=== PATIENT | female | born 1975 | race Two or more races ===

== ENCOUNTER 2020-04-17 06:58 | Emergency (ER) | payer BC ==
[~2020-04-17] VITALS: Ht 157.5 cm; Wt 105.0 kg
--- NOTE | 2020-04-17 07:25 | PHYS DOC ---
Past Medical History Past Medical History: Diabetes-Type II Past Surgical History: No Surgical History Smoking Status: Never Smoker Alcohol Use: Occasionally General Adult EDM: Chief Complaint: ALLERGIC REACTION HPI: HPI: Patient is a 44 year old female who presented to ER for evaluation of itching rash over her body started yesterday. This morning she woke up with a lower lip swelling. She denies any trouble swallowing, no chest pain, no nausea vomiting, no trouble breathing. Patient states the symptoms started after she came home from eating outside. Patient states she ate some shrimp but she did eat shrimp before and did not have any problem in the past. Patient was recently started on Metformin and omeprazole 2 weeks ago. Review of Systems: Review of Systems: Constitutional: Denies fever or chills. [] Eyes: Denies change in visual acuity. [] HENT: Denies nasal congestion or sore throat. [] Respiratory: Denies cough or shortness of breath. [] Cardiovascular: Denies chest pain or edema. [] GI: Denies abdominal pain, nausea, vomiting, bloody stools or diarrhea. [] : Denies dysuria. [] Musculoskeletal: Denies back pain or joint pain. [] Integument: Positive for rash and itching. Neurologic: Denies headache, focal weakness or sensory changes. [] Endocrine: Denies polyuria or polydipsia. [] Lymphatic: Denies swollen glands. [] Psychiatric: Denies depression or anxiety. [] Heart Score: Risk Factors: Risk Factors: DM, Current or recent (<one month) smoker, HTN, HLP, family hi story of CAD, obesity. Risk Scores: Score 0 - 3: 2.5% MACE over next 6 weeks - Discharge Home Score 4 - 6: 20.3% MACE over next 6 weeks - Admit for Clinical Observation Score 7 - 10: 72.7% MACE over next 6 weeks - Early Invasive Strategies Current Medications: Current Medications Medications (Trade) Dose Ordered Sig/Casa Start Time Stop Time Status Last Admin Dose Admin Diphenhydramine HCl (Benadryl) 50 mg 1X ONCE 04/17/20 07:30 04/17/20 07:31 Famotidine (Pepcid Vial) 20 mg 1X ONCE 04/17/20 07:30 04/17/20 07:31 Methylprednisolone Sodium Succinate (SOLU-Medrol 125MG VIAL) 125 mg 1X ONCE 04/17/20 07:30 04/17/20 07:31 Allergies: Allergies: Allergies Coded Allergies Type Severity Reaction Last Updated Verified No Known Drug Allergies 04/17/20 No Physical Exam: PE: Constitutional: Well developed, well nourished, no acute distress, non-toxic appearance. [] HENT: Normocephalic, atraumatic, bilateral external ears normal, oropharynx moist, no oral exudates, nose normal. Lower lip swelling, no tongue swelling. Eyes: PERRLA, EOMI, conjunctiva normal, no discharge. [] Neck: Normal range of motion, no tenderness, supple, no stridor. [] Cardiovascular:Heart rate regular rhythm, no murmur [] Lungs & Thorax: Bilateral breath sounds clear to auscultation [] Abdomen: Bowel sounds normal, soft, no tenderness, no masses, no pulsatile masses. [] Skin: Warm, dry, no erythema diffuse Maculopapular rash for trunk, extremities. Back: No tenderness, no CVA tenderness. [] Extremities: No tenderness, no cyanosis, no clubbing, ROM intact, no edema. [] Neurologic: Alert and oriented X 3, normal motor function, normal sensory function, no focal deficits noted. [] Psychologic: Affect normal, judgement normal, mood normal. [] Current Patient Data: Vital Signs: Vital Signs Date Time Temp Pulse Resp B/P (MAP) Pulse Ox O2 Delivery O2 Flow Rate FiO2 04/17/20 07:09 97.2 93 18 193/83 (119) 97 Room Air 97.2 EKG: EKG: [] Radiology/Procedures: Radiology/Procedures: [] Course & Med Decision Making: Course & Med Decision Making Pertinent Labs and Imaging studies reviewed. (See chart for details) Patient is a 44-year-old female who presented to ER with rash and swelling lower lip after eating 2 days ago. Patient is most likely allergic to shrimp. Patient was instructed not to eat swim anymore, she will need to follow-up with an allergy doctor for outpatient testing. Patient was given medication in the ER, feeling much better. Patient will be discharged home soon. Dragon Disclaimer: Dragon Disclaimer: This electronic medical record was generated, in whole or in part, using a voice recognition dictation system. Departure Departure Impression: Primary Impression: Urticaria Additional Impression: Allergic angioedema Disposition: 01 DC HOME SELF CARE/HOMELESS Condition: IMPROVED Patient Instructions: Angioedema, Hives Additional Instructions: DO NOT EAT SHRIMPS ANYMORE. PLEASE FOLLOW UP WITH AN ALLERGY DOCTOR THIS WEEK FOR ALLERGY TESTING. Scripts Famotidine (PEPCID) 20 Mg Tablet 20 MG PO HS for 5 Days, #5 TAB Prov: SHANIQUA CURRIE DO 04/17/20 Prednisone (PREDNISONE) 20 Mg Tablet 1 TAB PO DAILY for 5 Days, #5 TAB Prov: SHANIQUA CURRIE DO 04/17/20 SHANIQUA CURRIE DO Apr 17, 2020 07:25
[2020-04-17] MEDS ORDERED: FAMOTIDINE 20 MG/2 ML VIAL IVP ONE (07:30)
[2020-04-17] MEDS ORDERED: methylPREDNISolone SOD SUCC PF 125 MG/2 ML VIAL. IV ONE (07:30)
[2020-04-17] MEDS ORDERED: diphenhydrAMINE 50 MG/ML VIAL IVP ONE (07:30)
[2020-04-17] MEDS ORDERED: EPINEPHrine 1 MG/ML VIAL ONE (08:37)
[2020-04-17] MEDS ORDERED: EPINEPHrine 1 MG/ML VIAL IM ONE (08:45)
[2020-04-17 09:10] VITALS: BP 130/63
[2020-04-17] MEDS ORDERED: PRED20TA PO (09:25)
[2020-04-17] MEDS ORDERED: FAMO-63 PO (09:25)
== END 2020-04-17 09:33 | disposition home or self-care (01) ==
LOC: ER 06:58
DX: T78.3XXA Angioneurotic edema, initial encounter (principal); R21 Rash and other nonspecific skin eruption; E11.9 Type 2 diabetes mellitus without complications; X58.XXXA Exposure to other specified factors, initial encounter; Y93.89 Activity, other specified; Y92.89 Other specified places as the place of occurrence of the external cause; Y99.8 Other external cause status
CPT/HCPCS: 96372; 96374; 96375; 99284; J0171; J1200; J2930; J3490

== ENCOUNTER → 2020-04-20 | Outpatient (CLI) | payer BC ==
[2020-04-17 09:10] VITALS: BP 130/63
[~2020-04-20] MED LIST: FAMO-63 PO; METF10007 PO; OMEP40CA7 PO; OXYC1TAB15 PO; PRED20TA PO; SINCALIDE 2.1 MCG in IV NORMAL SALINE 50ML 30 ML IV ONE
--- NOTE | 2020-04-20 10:58 | RAD ---
EXAM: HEPATOBILIARY SCINTIGRAPHY WITH GALLBLADDER EJECTION FRACTION CALCULATION. HISTORY: Right upper quadrant abdominal pain for one month TECHNIQUE: 5 mCi technetium-99m Choletec were administered intravenously and scintigraphic images of the abdomen obtained. After filling of the gallbladder, 2.1 mcg of sincalide were infused and the gal lbladder ejection fraction calculated. FINDINGS: Due to a software glitch, the initial hour of images did not save. Gallbladder filling by r eport commenced at approximately the 30 minute jaskaran. There is ultimately normal filling of the gallb ladder and clearance into the biliary tree and small bowel. The gallbladder ejection fraction is 49% (normal >35%). IMPRESSION: 1. Normal gallbladder ejection fraction. Electronically signed by: Gregorio Guillen MD (04/20/2020 10:56 AM) [id number]
== END ==
LOC: NM 08:00
PROVIDERS: ATTEND Physician Assistant
DX: K21.9 Gastro-esophageal reflux disease without esophagitis (principal); R19.8 Other specified symptoms and signs involving the digestive system and abdomen; R11.0 Nausea; R10.11 Right upper quadrant pain
CPT/HCPCS: 78227; A9537; J2805

== ENCOUNTER → 2020-08-14 | Outpatient (CLI) | payer BC ==
[~2020-08-14] MED LIST changes: -SINCALIDE 2.1 MCG in IV NORMAL SALINE 50ML 30 ML IV ONE
== END ==
LOC: LAB 09:39
PROVIDERS: ATTEND Surgery
DX: Z01.812 Encounter for preprocedural laboratory examination (principal); Z20.822 Contact with and (suspected) exposure to COVID-19; K82.8 Other specified diseases of gallbladder
CPT/HCPCS: U0003; U0005

== ENCOUNTER 2020-08-15 06:06 | Day surgery (SDC) | payer BC ==
[~2020-08-15] VITALS: Ht 157.5 cm; Wt 106.0 kg
[~2020-08-15 06:06] MED LIST changes: +HYDROmorphone 2 MG/ML VIAL IVP PRN; +IV RINGERS,LACTATED 1000ML 1,000 ML IV SCH; +MORPHINE SULFATE 2 MG/ML VIAL. IVP PRN; -OXYC1TAB15 PO; +PROCHLORPERAZINE 10 MG/2 ML VIAL. IVP PRN; +fentaNYL PF VIAL 100 MCG/2 ML VIAL IVP PRN
[2020-08-15] MEDS ORDERED: ROCURONIUM 50 MG/5 ML VIAL. ONE (06:34)
[2020-08-15] MEDS ORDERED: LIDOCAINE 2% PF 5 ML VIAL. ONE (06:34)
[2020-08-15] MEDS ORDERED: ONDANSETRON PF 4 MG/2 ML VIAL. ONE (06:34)
[2020-08-15] MEDS ORDERED: fentaNYL PF VIAL 100 MCG/2 ML VIAL ONE ×3 (06:34→09:05)
[2020-08-15] MEDS ORDERED: PROPOFOL 10 MG/ML (20ML) VIAL. IV ONE (06:34)
[2020-08-15] MEDS ORDERED: DEXAMETHASONE SOD PHOS 4 MG/ML VIAL ONE (06:34)
[2020-08-15 06:43] VITALS: BP 133/75
[2020-08-15] MEDS ORDERED: IOHEXOL 300 MG/ML 50 ML VIAL. ONE (06:59)
[2020-08-15] MEDS ORDERED: SURGICEL HEMOSTAT 4X8 EACH. ONE (06:59)
[2020-08-15] MEDS ORDERED: BUPIVACAINE MPF 0.5% 30 ML VIAL. ONE (06:59)
[2020-08-15] MEDS ORDERED: GLYCOPYRROLATE 1 MG/5 ML VIAL. ONE (07:36)
[2020-08-15] MEDS ORDERED: NEOSTIGMINE METHYLSULFATE 5 MG/5 ML SYRINGE. ONE (07:51)
[2020-08-15] MEDS ORDERED: KETOROLAC 30 MG/ML VIAL. ONE ×2 (08:11→08:13)
[2020-08-15] MEDS ORDERED: SEVOFLURANE 61 TO 120 MINUTES. IH ONE (08:11)
--- NOTE | 2020-08-15 08:12 | RAD ---
INDICATION: Reason: CHOLANGIOGRAM IN OR WITH C-ARM,FL TIME =.24 MIN, 3 IMAGES / Spl. Instructions: / History: . Fluoro for procedure. IMPRESSION: Fluoroscopy was utilized by the clinical service to assist with their procedure. There are 3 saved images/series. The limited saved images show spot images of the upper abdomen with contrast injection of the bile du ct with contrast flow into the duodenum without evidence of common bile duct obstruction. A definite persistent filling defect is not seen.. 0.24 minutes of fluoroscopy time was used. This dictation is for the usage of fluoroscopy only. Please see the clinical service's procedure note for detail on the procedure. Electronically signed by: Manny Beckett MD (08/15/2020 8:10 AM) [id number]
--- NOTE | 2020-08-15 08:28 | PDOC4 ---
Operative Note Operative Note Operative Note: Preoperative Diagnosis: Biliary dyskinesia Postoperative Diagnosis: Same Procedure: Laparoscopic cholecystectomy with intraoperative cholangiogram Surgeons: Michael Chainstitch Pants Outseamer: Quita WALSH Anesthesia: Gen. Estimated Blood Loss: 10 mL Specimen: Gallbladder to pathology Drains: None Complications: None Indications: The patient is a 44-year-old female who was referred due to biliary dyskinesia. Surgical treatment was offered by means of a laparoscopic cholecystectomy. The risks of surgery were discussed which include bleeding, infection, bile duct injury, bile leak, pain, the potential for additional surgeries or procedures. The patient understands and would like to proceed. Description: The patient was taken to the operating room and laid supine on the operating table. General anesthesia was performed. The abdomen was prepped with ChloraPrep and draped in a standard surgical fashion. A small infraumbil ical incision was made with a scalpel. The Veress needle was then inserted and a pneumoperitoneum was then created. A 5 mm trocar was then inserted and the laparoscope was introduced. In the upper midabdomen a 5 mm trocar was inserted and in the right upper quadrant two 2.3 mm mini lap graspers were inserted. The gallbladder was retracted cephalad. The cystic duct was dissected free from surrounding tissues. One clip was placed on the duct near the gallbladder junction. An opening was made in the duct and a cholangiocatheter placed within and secured with a clip. Using contrast dye and fluoroscopy an intraoperative cholangiogram was performed that appeared unremarkable. The clip and catheter were then withdrawn. Three clips were placed on the cystic duct and it was divided. The cystic artery was then identified, dissected free, doubly clipped and divided as well. The gallbladder was then mobilized away from the liver with cautery. The umbilical 5 millimeter trocar was exchanged for an [address] trocar. The gallbladder was then placed in an endoscopic bag and extracted at the umbilical trocar site. The fascia there was closed with an 0 Vicryl suture and infiltrated with 0.5% marcaine. All blood and irrigation fluid was suctioned and hemostasis was good. The remaining ports were removed and the pneumoperitoneum was relieved. The skin incisions were closed using 4-0 Monocryl suture. Steri-Strips and dressings were then applied. The patient tolerated the procedure well and was sent to the recovery room in stable condition. At the end of the case all counts were correct. DESTIN GONZALEZ MD Aug 15, 2020 08:28
--- NOTE | 2020-08-15 08:30 | DISCH ---
DISCHARGE INSTRUCTIONS Condition on Discharge Condition on Discharge: Stable Activity After Discharge Activity Instructions for Disc: Other, see below (no lifting over 20 lbs X 2 weeks, no driving while taking pain meds) Diet after Discharge Diet after Discharge: Regular Wound Incision Care Wound/Incision Care: Other, see below (may remove bandaids tomorrow and shower) Follow-Up Follow up with: Dr Gonzalez in office in 2 weeks, call for appointment DESTIN GONZALEZ MD Aug 15, 2020 08:30
[2020-08-15] MEDS: INSULIN LISPRO 100 UNIT/ML 3ML VIAL for OP,RR ONLY. SQ PRN ×2 (08:53→09:50)
[2020-08-15] MEDS ORDERED: PROCHLORPERAZINE 10 MG/2 ML VIAL. ONE (09:05)
[2020-08-15] MEDS ORDERED: OXYC1TAB15 PO (09:08)
[2020-08-15] MEDS ORDERED: oxyCODONE/APAP 5/325 1 TAB TABLET PO ONE ×2 (09:15)
[2020-08-15 09:54] VITALS: BP 129/71
[2020-08-15] MEDS ORDERED: INSULIN LISPRO 100 UNIT/ML 3ML VIAL for OP,RR ONLY. SQ ONE ×2 (10:00)
--- NOTE | 2020-08-17 18:06 | PATHOLOGY ---
[facility] Accession Number: [id number] . 01 Material submitted: . gallbladder - GALLBLADDER . 01 Clinical history: . BILIARY DYSKINESIA LAP CLARKE W/ GRAMS . 02 Diagnosis: Gallbladder, laparoscopic cholecystectomy: - Cholesterolosis. - Chronic cholecystitis. (WINSTONM:sandra; 08/17/2020) [facility] 08/17/2020 1553 Local . 02 Comment: There are no calculi identified within the gallbladder lumen or specimen container. There is no evidence of malignancy. (WINSTONM:sandra; 08/17/2020) . 02 Electronically signed: . Bryan Magallon MD, Pathologist NPI- [id number] . 01 Gross description: . Fixative: formalin Labeled: gallbladder Specimen received: partially collapsed Dimensions: 7.5 x 3 x 1.5 cm Serosa: smooth green-yellow Lymph node: not identified Mucosa: velvety-with a yellow reticular pattern Average wall thickness: 0.5 cm Calculi: None Abnormalities: None . Md Pediatric Allergist body, fundus, and the cystic duct margin in cassette A1. ([facility]; 08/16/2020) NICO/NICO 08/16/2020 1714 Local . 02 Pathologist provided ICD-10: K81.1, K82.4 . 02 CPT . 960474 Specimen Comment: A courtesy copy of this report has been sent to [phone], [phone] Specimen Comment: [id number] Specimen Comment: Report sent to / DR VELASQUEZ Performed at: 01 [facility] [address], [place], [place] [id number] MD Luan Butterfield MD Phone: [phone] Performed at: 02 [facility] [address] [place], [place] [id number] MD Bryan Magallon MD Phone: [phone]
== END 2020-08-15 10:22 | disposition home or self-care (01) ==
LOC: SURG 06:06
PROVIDERS: ATTEND Surgery
DX: K82.8 Other specified diseases of gallbladder (principal); K81.1 Chronic cholecystitis; E11.9 Type 2 diabetes mellitus without complications; K21.9 Gastro-esophageal reflux disease without esophagitis; E66.9 Obesity, unspecified; J45.909 Unspecified asthma, uncomplicated; Z98.51 Tubal ligation status; Z98.890 Other specified postprocedural states; Z79.84 Long term (current) use of oral hypoglycemic drugs; Z79.899 Other long term (current) drug therapy; Z72.89 Other problems related to lifestyle
CPT/HCPCS: 47563; 74300; 81025; 82962; A4213; A4314; A4364; A4930; A6219; C1887; J0690; J0780; J1100; J1815; J1885; J2405; J2704; J2710; J3010; J3490; Q9967; 88304; A4452; A4657